=== PATIENT | female | born 1950 | race Caucasian/White ===

== ENCOUNTER → 2025-03-08 13:24 | Outpatient (REF) | payer MEDICARE, OTHER, SELFPAY | LOC: DHSLP 13:24 | PROVIDERS: ATTENDING PHYSICIAN Internal Medicine Pulmonary Disease | DX: G47.33 Obstructive sleep apnea (adult) (pediatric) (principal); R09.02 Hypoxemia; G47.61 Periodic limb movement disorder | CPT/HCPCS: 95811 ==